=== PATIENT | female | born 1970 | race Caucasian/White ===

== ENCOUNTER 2017-11-13 20:12 | Inpatient (IN) | payer SELFPAY ==
[2017-11-13] MEDS ORDERED: HALDOL INJ ONE ×3 (20:23→20:49)
[2017-11-13] MEDS ORDERED: ACTIDOSE WITH SORBITOL NG ONE (20:30)
[2017-11-13] MEDS ORDERED: HALDOL INJ IM ONE ×2 (20:47→20:48)
--- NOTE | 2017-11-13 20:50 | DR.GENAD ---
HPI - Complaint/Symptoms Chief Complaint Doctors Comments: Patient was brought to the ED s/p being called by the spouse of patient when found patient in house unresponsive s/p just seeing her in her usual state of good health less than fifteen minutes later. Upon arrival to the ED she was combative, would not answer question. She eventualy came around, was combative, she was given Haldol 10mg IM. Patient was calm but was non cooperative as to what had hapened. Activated charcoal given and IVF started. patient became subdued and eventually began answering questions but she did not know any answers as to what had happened and/or why it had happened. PMH - PMH Past Medical History: Anxiety, GERD Past Surgical History: No - Family History Family Medical History: Diabetes Mellitus, [place], Hypertension - Social History Do you use any recreational Drugs:: No ROS - Review of Systems Eyes: No Symptoms Reported ENTM: No Symptoms Reported Respiratoy: No Symptoms Reported Cardiovascular: No Symptoms Reported Gastrointestinal/Abdominal: No Symptoms Reported Genitourinary: No Symptoms Reported Neurological: No Symptoms Reported Musculoskeletal: No Symptoms Reported Integumentary: No Symptoms Reported Hematologic/Lymphatic: No Symptoms Reported Endocrine: No Symptoms Reported Psychiatric: No Symptoms Reported All Other Systems: Reviewed and Negative PE - Vital Signs Vitals: Temperature 97.2 F Pulse Rate [Left Brachial] 93 Pulse Rate 98 Respiratory Rate 22 Blood Pressure [Right Arm] 115/62 Blood Pressure 130/94 O2 Sat by Pulse Oximetry 99 - General General Appearance: Alert, Obtunded - Head Head Exam: Normal Inspection, Atraumatic - Eyes Eye exam: Normal Appearance, PERRL, EOMI - ENT ENT Exam: Normal Exam External Ear Exam: Normal External Inspection TM/Canal Exam: Bilateral Normal Nose Exam: Normal Nose Exam Mouth Exam: Normal Inspection Throat Exam: Normal Inspection - Neck Neck Exam: Normal Inspection - Chest Chest Inspection: Normal Inspection - Respiratory Respiratory Exam: Normal Lung Sounds Bilat Respiratory Exam: Bilateral Clear to Auscultation - Cardiovascular Cardiovascular Exam: Regular Rate - Abdominal Exam Abdominal Exam: Normal Inspection, Normal Bowel Sounds Abdominal Tenderness: RUQ, RLQ, LUQ, LLQ - Extremities Extremities Exam: Normal Inspection - Back Back Exam: Normal Inspection, Full ROM - Neurologic Neurological Exam: Alert, Oriented X3, CN II-XII Intact - Psychiatric Psychiatric Exam: Normal Affect, Normal Mood - Skin Skin Exam: Warm, Dry, Intact Course - Treatment Treatment: Patient is responsive, states that she does not what happened, denies suicidal attempt. She reports that she is an insomniac stays up for three to four nights at a time. She uses xanax to sleep and takes up to 5mg at a time. She gets the medication from her physician or on the streets. She can not remember. She denies suicidal attempt. 0700-on non-rebreather, saturation 97 % IVF @100/hr. She was given two doses of flumazenil became more alert. brant contacted for psychological evaluation. Nicotine patch ordered. - Reevaluation 1st: Improved ROR - Labs Reviewed Laboratory Results Reviewed?: Yes (Drug screen, THC, Benzodiazepines) Result Diagrams: 11/14/17 00:04 11/14/17 00:04 Laboratory: 11/14/17 01:30 Sputum - Expectorated Sputum - Final WBC 13.8 X10^3/uL (3.6-10.0) H 11/14/17 00:04 RBC 4.07 X10^6/uL (3.5-5.4) 11/14/17 00:04 Hgb 12.5 g/dL (12.0-16.0) 11/14/17 00:04 Hct 36.8 % (36.0-47.0) 11/14/17 00:04 MCV 90.3 fL (80.0-100.0) 11/14/17 00:04 MCH 30.6 pg (27.0-34.0) 11/14/17 00:04 MCHC 33.9 g/dL (33.0-35.0) 11/14/17 00:04 RDW 13.7 % (11.6-16.5) 11/14/17 00:04 Plt Count 294 X10^3/uL (150.0-450.0) 11/14/17 00:04 MPV 7.3 fL (7.4-11.0) L 11/14/17 00:04 Neut % (Auto) 89.3 % (42.0-75.0) H 11/14/17 00:04 Lymph % (Auto) 4.5 % (21.0-51.0) L 11/14/17 00:04 [place] % (Auto) 6.0 % (0.0-13.0) 11/14/17 00:04 Eos % (Auto) 0.1 % (0.9-2.9) L 11/14/17 00:04 Baso % (Auto) 0.1 % (0.2-1.0) L 11/14/17 00:04 Neut # (Auto) 12.3 x10^3/uL (2.2-4.8) H 11/14/17 00:04 Lymph # (Auto) 0.6 X10^3/uL (1.3-2.9) L 11/14/17 00:04 [place] # (Auto) 0.8 x10^3/uL (0.3-0.8) 11/14/17 00:04 Eos # (Auto) 0.0 x10^3/uL (0.0-0.2) 11/14/17 00:04 Baso # (Auto) 0.0 X10^3/uL (0.0-0.1) 11/14/17 00:04 Absolute Nucleated RBC 0.0 /100WBC 11/14/17 00:04 Sample Site Right radial 11/14/17 06:15 ABG pH 7.400 (7.35-7.45) 11/14/17 06:15 ABG pCO2 54.0 mmHg (35.0-45.0) H* 11/14/17 06:15 ABG pO2 31.0 mmHg (80.0-100.0) L* 11/14/17 06:15 ABG HCO3 33.4 mmol/L (22-26) H* 11/14/17 06:15 ABG O2 Saturation 60.0 % (90-100) L* 11/14/17 06:15 ABG Base Excess 7.1 mmol/L (-2.0-2.0) H 11/14/17 06:15 Ulices Test Pos 11/14/17 06:15 A-a Gradient 51.0 mmHg 11/14/17 06:15 FiO2 21.000 11/14/17 06:15 Blood Gas Comments Bhavana padilla 11/14/17 06:15 Sodium 142 mmol/L (136-145) 11/14/17 00:04 Corrected Sodium TNP 11/14/17 00:04 Potassium 3.7 mmol/L (3.5-5.1) 11/14/17 00:04 Chloride 105 mmol/L (98-107) 11/14/17 00:04 Carbon Dioxide 32.1 mmol/L (21-32) H 11/14/17 00:04 BUN 11 mg/dL (7-18) 11/14/17 00:04 Creatinine 0.83 mg/dL (0.55-1.02) 11/14/17 00:04 Est GFR (MDRD) Af Amer > 60 (>60) 11/14/17 00:04 Est GFR (MDRD) Non-Af > 60 (>60) 11/14/17 00:04 Glucose 82 mg/dL (65-99) 11/14/17 00:04 Calcium 7.6 mg/dL (8.5-10.1) L 11/14/17 00:04 Specimen Type Clean catch urine 11/13/17 23:49 Urine Color Yellow (YELLOW) 11/13/17 23:49 Urine Appearance Hazy (CLEAR) 11/13/17 23:49 Urine pH 5.0 (5.0 - 8.0) 11/13/17 23:49 Ur Specific [place] 1.015 (1.000-1.030) 11/13/17 23:49 Urine Protein 2+ (NEGATIVE) 11/13/17 23:49 Urine Glucose (UA) 4+ (NEGATIVE) 11/13/17 23:49 Urine Ketones Negative (NEGATIVE) 11/13/17 23:49 Urine Occult Blood 3+ (NEGATIVE) 11/13/17 23:49 Urine Nitrite Negative (NEGATIVE) 11/13/17 23:49 Urine Bilirubin Negative (NEGATIVE) 11/13/17 23:49 Urine Urobilinogen Normal (NORMAL) 11/13/17 23:49 Ur Leukocyte Esterase Negative (NEGATIVE) 11/13/17 23:49 Urine RBC 0-2 /HPF (NONE SEEN) 11/13/17 23:49 Urine WBC 0-2 /HPF (NONE SEEN) 11/13/17 23:49 Ur Squamous Epith Cells Numerous /HPF (NEGATIVE) 11/13/17 23:49 Urine Bacteria Negative /HPF (NEGATIVE) 11/13/17 23:49 Ur Culture Indicated? No/not indicated 11/13/17 23:49 Urine Opiates Screen Negative (NEG=<300) 11/13/17 23:49 Urine Methadone Screen Negative (NEG=<300) 11/13/17 23:49 Ur Barbiturates Screen Negative (NEG=<200) 11/13/17 23:49 Ur Phencyclidine Scrn Negative (NEG=<25) 11/13/17 23:49 Ur Amphetamines Screen Negative (NEG=<1000) 11/13/17 23:49 U Benzodiazepines Scrn Positive (NEG=<200) A 11/13/17 23:49 Urine Cocaine Screen Negative (NEG=<300) 11/13/17 23:49 U Marijuana (THC) Screen Positive (NEG=<50) A 11/13/17 23:49 - XRAY XRAY Interpreted by: Radiologist (ETT: good placement, no acute cardiopulmonary disease, chest clear. ETT good positing) - Diagnosis Discharge Problem: benzodiazepine ingestion, Tetrahydrocannabinol (THC) use disorder, mild, abuse , Acute respiratory acidosis, Non-suicidal self harm Insomnia disorder Qualifiers: Insomnia type: unspecified Qualified Code(s): G47.00 - Insomnia, unspecified - Discharge Plan Condition: Stable - Follow ups/Referrals Follow ups/Referrals: NFD,None [Primary Care Provider] - 3 days - Instructions
[2017-11-13 20:56] LABS: ABG BASE EXCESS -0.2 mmol/L (-2.0-2.0); ABG HCO3 29.1 mmol/L (22-26)
--- NOTE | 2017-11-13 21:05 | RAD ---
HISTORY: NGT placement Study: KUB Comparison: None Findings: Evaluation of the abdomen demonstrates a nasogastric tube to be present, with the distal tip terminat ing within the left upper quadrant, likely within the stomach body. The bony structures are grossly intact. IMPRESSION: 1. ET tube in place as above Reported By:
[2017-11-14 00:19] LABS: BILIRUBIN,URINE NEGATIVE (NEGATIVE); BLOOD/HEMOGLOBIN,URINE 3+ (NEGATIVE); GLUCOSE, URINE 4+ (NEGATIVE); KETONES,URINE NEGATIVE (NEGATIVE); LEUKOCYTE ESTERASE ,URINE NEGATIVE (NEGATIVE); NITRITES,URINE NEGATIVE (NEGATIVE); PROTEIN,URINE 2+ (NEGATIVE); UROBILINOGEN,URINE NORMAL (NORMAL)
[2017-11-14 00:19] LABS: BASOPHILS % (AUTO) 0.1 % (0.2-1.0); EOSINOPHILS % (AUTO) 0.1 % (0.9-2.9); HEMATOCRIT 36.8 % (36.0-47.0); HEMOGLOBIN 12.5 g/dL (12.0-16.0); LYMPHOCYTES # (AUTO) 0.6 X10^3/uL (1.3-2.9); LYMPHOCYTES % (AUTO) 4.5 % (21.0-51.0); MEAN CORPUSCULAR HEMOGLOBIN 30.6 pg (27.0-34.0); MEAN CORPUSCULAR HGB CONC 33.9 g/dL (33.0-35.0); MEAN CORPUSCULAR VOLUME 90.3 fL (80.0-100.0); MEAN PLATELET VOLUME 7.3 fL (7.4-11.0); MONOCYTES # (AUTO) 0.8 x10^3/uL (0.3-0.8); NEUTROPHILS # (AUTO) 12.3 x10^3/uL (2.2-4.8); NEUTROPHILS % (AUTO) 89.3 % (42.0-75.0); PLATELET COUNT 294 X10^3/uL (150.0-450.0); RED BLOOD COUNT 4.07 X10^6/uL (3.5-5.4); RED CELL DISTRIBUTION WIDTH 13.7 % (11.6-16.5); WHITE BLOOD COUNT 13.8 X10^3/uL (3.6-10.0)
[2017-11-14 00:21] LABS: BLOOD UREA NITROGEN 11 mg/dL (7-18); CALCIUM 7.6 mg/dL (8.5-10.1); CARBON DIOXIDE 32.1 mmol/L (21-32); CHLORIDE 105 mmol/L (98-107); CREATININE 0.83 mg/dL (0.55-1.02); SODIUM 142 mmol/L (136-145); eGFR BLACK RACES > 60 (>60); eGFR NON BLACK RACES > 60 (>60)
[2017-11-14 00:34] LABS: APPEARANCE,URINE HAZY (CLEAR); BACTERIA,URINE NEGATIVE /HPF (NEGATIVE); COLOR,URINE YELLOW (YELLOW); RBC,URINE 0-2 /HPF (NONE SEEN); SQUAMOUS EPITHELIAL CELL,UR NUMEROUS /HPF (NEGATIVE)
[2017-11-14] MEDS ORDERED: DUONEB 0.5 MG/3 MG NEB ONE ×2 (01:12→09:59)
[2017-11-14] MEDS ORDERED: DECADRON JET NEB (RESP USE) NEB ONE (01:12)
--- NOTE | 2017-11-14 01:33 | RAD ---
AP chest. Indication: Wheezing, overdose Comparison: 07/05/2015 Findings: Lungs are clear. Heart size is normal. No pleural effusion or pneumothorax. No acute osseou s abnormality. Impression: No acute cardiopulmonary abnormality or change from prior examination. Reported By:
[2017-11-14] MEDS ORDERED: ROMAZICON INJ 0.5 MG IVP ONE (01:45)
[2017-11-14 05:43] LABS: ABG BASE EXCESS 7.9 mmol/L (-2.0-2.0)
[2017-11-14 05:45] LABS: ABG HCO3 34.9 mmol/L (22-26)
[2017-11-14 06:25] LABS: ABG BASE EXCESS 7.1 mmol/L (-2.0-2.0)
[2017-11-14 06:27] LABS: ABG ALLEN TEST POS; ABG HCO3 33.4 mmol/L (22-26)
[2017-11-14] MEDS ORDERED: NS 1000 ML 1,000 ML ONE (06:34)
[2017-11-14] MEDS ORDERED: ROMAZICON INJ 0.5 MG ONE (06:34)
[2017-11-14] MEDS ORDERED: SOLU-Medrol 125 MG VIAL ONE (06:55)
[2017-11-14] MEDS: SOLU-Medrol 125 MG VIAL IVP ONE ×2 (07:00→20:12)
[2017-11-14] MEDS: NICOTINE PATCH TD SCH ×2 (08:59)
[2017-11-14 09:38] LABS: ABG BASE EXCESS 7.1 mmol/L (-2.0-2.0)
[2017-11-14 09:39] LABS: ABG HCO3 34.1 mmol/L (22-26)
[2017-11-14 09:40] LABS: ABG ALLEN TEST POS
[2017-11-14 10:10] LABS: SALICYLATE < 2.8 mg/dL (2.8-20)
[2017-11-14 11:29] VITALS: BMI 31.1
[2017-11-14] MEDS: NS 1000 ML 1,000 ML IV SCH ×2 (11:29→17:23)
[2017-11-14] MEDS: DUONEB 0.5 MG/3 MG NEB SCH ×4 (13:11→20:42)
[2017-11-14] MEDS: SOLU-Medrol 40 MG VIAL IVP SCH ×2 (13:19→20:59)
[2017-11-14] MEDS: LASIX PO SCH (21:00)
[2017-11-14] MEDS ORDERED: ZANTAC PO SCH (21:00)
[2017-11-14] MEDS ORDERED: K-RIDER 10 MEQ/NS 100 ML 10 MEQ/100 ML BAG IV PRN (22:21)
[2017-11-14] MEDS ORDERED: POTASSIUM CHL 40 MEQ/NS 0.45% 500 ML IV PRN (22:21)
[2017-11-14] MEDS ORDERED: POTASSIUM CHL 60 MEQ/NS 0.45% 500 ML IV PRN (22:21)
[2017-11-14] MEDS ORDERED: POTASSIUM CHLORIDE LIQ 20 MEQ UDC PO PRN (22:21)
[2017-11-14] MEDS: K-LYTE EFFERVESCENT PO PRN (23:01)
[2017-11-14] MEDS: MAGNESIUM SULFATE 1 GM/100 mL PREMIX 1 GM/100 ML BAG IV PRN (23:01)
[2017-11-15] MEDS: MAGNESIUM SULFATE 1 GM/100 mL PREMIX 1 GM/100 ML BAG IV PRN ×3 (00:22→02:17)
[2017-11-15] MEDS: DUONEB 0.5 MG/3 MG NEB SCH ×4 (01:11→13:45)
[2017-11-15] MEDS: NS 1000 ML 1,000 ML IV SCH ×3 (01:14→13:03)
[2017-11-15] MEDS: SOLU-Medrol 40 MG VIAL IVP SCH ×2 (05:22→13:03)
[2017-11-15 06:41] LABS: ALANINE AMINOTRANSFERASE 45 Units/L (12-78); ALBUMIN 2.5 g/dL (3.4-5.0); ALKALINE PHOSPHATASE 72 Units/L (46-116); ASPARTATE AMINO TRANSFERASE 31 Units/L (15-37); BLOOD UREA NITROGEN 7 mg/dL (7-18); CALCIUM 7.6 mg/dL (8.5-10.1); CARBON DIOXIDE 28.2 mmol/L (21-32); CHLORIDE 106 mmol/L (98-107); COR CA(FOR HYPOALB) 8.8 mg/dL (8.5-10.1); COR NA(FOR HYPERGLY) 143 mmol/L (136-145); CREATININE 0.63 mg/dL (0.55-1.02); MAGNESIUM 2.5 mg/dL (1.7-2.9); SODIUM 141 mmol/L (136-145); TOTAL PROTEIN 6.2 g/dL (6.4-8.2); eGFR BLACK RACES > 60 (>60); eGFR NON BLACK RACES > 60 (>60)
[2017-11-15 06:53] LABS: BASOPHILS % (AUTO) 0.2 % (0.2-1.0); HEMOGLOBIN 11.2 g/dL (12.0-16.0); LYMPHOCYTES # (AUTO) 0.6 X10^3/uL (1.3-2.9); LYMPHOCYTES % (AUTO) 3.1 % (21.0-51.0); MEAN CORPUSCULAR HEMOGLOBIN 30.5 pg (27.0-34.0); MEAN CORPUSCULAR HGB CONC 33.9 g/dL (33.0-35.0); MEAN CORPUSCULAR VOLUME 89.8 fL (80.0-100.0); MEAN PLATELET VOLUME 8.3 fL (7.4-11.0); MONOCYTES % (AUTO) 4.9 % (0.0-13.0); NEUTROPHILS % (AUTO) 91.8 % (42.0-75.0); PLATELET COUNT 233 X10^3/uL (150.0-450.0); RED BLOOD COUNT 3.67 X10^6/uL (3.5-5.4); RED CELL DISTRIBUTION WIDTH 13.7 % (11.6-16.5); WHITE BLOOD COUNT 20.7 X10^3/uL (3.6-10.0)
[2017-11-15 07:24] LABS: BAND NEUTROPHILS % 7 % (0-10); PLATELET MORPHOLOGY COMMENT NORMAL (NORMAL)
[2017-11-15] MEDS: LASIX PO SCH (08:28)
[2017-11-15] MEDS: NICOTINE PATCH TD SCH (08:31)
[2017-11-15] MEDS: K-LYTE EFFERVESCENT PO PRN (09:06)
[2017-11-15 09:53] LABS: ABG BASE EXCESS 5.1 mmol/L (-2.0-2.0); ABG HCO3 30.5 mmol/L (22-26)
--- NOTE | 2017-11-15 10:48 | RAD ---
HISTORY: Shortness of breath Study: Single view chest Comparison: 11/14/2017 Findings: Single upright portable view is submitted, limited by patient rotation and underpenetration. No infil trate, effusion or pneumothorax identified. The cardiac and mediastinal contours are within normal li mits. The soft tissues are unremarkable. IMPRESSION: 1. No acute cardiopulmonary abnormality. Reported By:
[2017-11-15 15:02] VITALS: BP 130/60
--- NOTE | 2017-11-17 09:21 | DR.CARTERS ---
Short Stay Summary - Short Stay Summary for: Short Stay Summary for Date of:: 11/15/17 - Admission Date Date of Admission: 11/14/17 - Discharge Date Discharge Date: 11/15/17 - Admission Diagnoses (1) Overdose of benzodiazepine Status: Acute (2) Hypoxia Status: Acute (3) Aspiration pneumonia Status: Acute - Hospital Course Hospital Course: is a 47 year old white female who presented to the emergency room via EMS on 11/13/17 unresponsive. Patients spouse called EMS after finding patient unresponsive when she was just in her usual state of good health less than fifteen minutes earler. On arrival to the hospital, patient was combative and would not answer questions. She was given Haldol 10mg IM x 1 dose. Patient was eventually calm and reported that she did not know what happened or why she was at the hospital. EMS reported that on arrival, her oxygen saturations were in the 70s. EMS attempted intubation without success and placed patient on non- rebreather with increase in saturation noted. EMS started an IV to right EJ and administered Narcan 0.4mg x2 in route. Patient given Romazicon and Activated charcoal in the ER. Patient became more alert and reports she took five 1mg Xanax at one time prior to becoming unresponsive. Patient denies suicide attempt and states she has insomnia and was just trying to sleep. Poison control was contacted and suggested patient be monitored for at least 24 hours. On arrival, vitals were 97.2, 113, 34, 97% Non-rebreather, 130/94. Labs were obtained. Abnormal Labs: WBC 13.8, MPV 7.3, Carbon Dioxide 32.1, Calcium 7.6, Magnesium 1.4, Salicylates <2.8, Acetominophen 0.0. Urinalysis: (11/13/17) Hazy, Protein 2+, Glucose 4+, Occult Blood 3+, RBC 0-2, WBC 0-2. Toxicology: Benzodiazepines Positive, THC Positive. Sputum Culture Pending; Sputum Gram Stain Gram Neg Cocci Few, Gram Pos Cocci Many, Gram Neg Rods Few, WBC Many. Chest X-Ray: No acute cardiopulmonary abnormality or change from prior examination. EKG: Sinus Rhythm. Rate=84. Multiple ABGs obtained in the emergency room revealed patient to be in respiratory acidosis. Patient monitored in the emergency room for about 14 hours and continued with decreased oxygen saturation and was admitted to the hospital for further evaluation and treatment. On the morning following admission, patient is alert and oriented, lying in bed on morning rounds. She reports a non-productive cough, otherwise, reports feeling well. On examination, she is noted with diminished lung sounds throughout. Her vitals this morning are 98.5-85-16-96%-111/54. Labs were obtained. Abnormal lab values include the following: WBC increased from 13.8 to 20.7, HGB 11.2, HCT 33.0, GLUCOSE 163, CALCIUM 7.6, TOTAL PROTEIN 6.2, ALBUMIN 2.5. AN ABG WAS OBTAINED AND REVEALED PH 7.420, PC02 47, P02 70, HC03 30.5, BASE EXCESS 5.1, O2 SATURATION 94.0. Sputum cultures are pending. A chest xray was obtained and revealed no acute cardiopulmonary abnormality. We planned for discharge. Instructions for medications and follow up were given to patient. She verbalized understanding of all orders. Patient discharged to home in stable condition with prescriptions for augmentin 875-125 1 tablet po q12h x 10 days, duoneb treatments tid x 10 days then prn, and a Medrol dosepack. She is instructed to follow up in the office on 11/22/17. - Discharge Medications Discharge Medications: Furosemide 40 mg PO DAILY 11/14/17 [History] Ranitidine HCl [ZANTAC TAB 150 MG *] 300 mg PO HS 11/14/17 [History] Amoxicillin/Potassium Clav [Augmentin 875-125 Tablet] 1 tab PO Q12H #20 tab [Rx] Ipratropium/Albuterol Nebule [DUONEB 0.5 MG/3 MG NEBULE *] 1 ea NEB TID #50 each 11/15/17 [Rx] Methylprednisolone Dosepak 4Mg [MEDROL DOSEPAK (4 mg tab x 21)] 1 sylvie PO ONCE # 1 sylvie 11/15/17 [Rx] - Discharge Plan Disposition: 01 HOME, SELF-CARE Condition: Stable Prescriptions: Amoxicillin/Potassium Clav [Augmentin 875-125 Tablet] 1 tab PO Q12H #20 tab Ipratropium/Albuterol Nebule [DUONEB 0.5 MG/3 MG NEBULE *] 1 ea NEB TID #50 each Methylprednisolone Dosepak 4Mg [MEDROL DOSEPAK (4 mg tab x 21)] 1 sylvie PO ONCE # 1 sylvie - Follow up/Referrals Follow up/Referrals: Mary Nuñez [Nurse Practitioner] - 11/22/17 10:00 am - Instructions Instructions: Benzodiazepine Overdose, Steps to Quit Smoking, [id number], Arterial Blood Gases Testing, Cannabis Use Disorder, How to Use a Nebulizer, Adult, Chronic Obstructive Pulmonary Disease, [id number], Steps to Quit Smoking Additional Instructions: diet as tolerated. activity as tolerated. Forms: Patient Portal
== END 2017-11-15 15:37 | disposition home or self-care (01) | DRG 917 ==
LOC: ER 20:21 → ICU 11-14 10:31
PROVIDERS: ADMIT Internal Medicine; ATTEND Internal Medicine
PROC: 0D9670Z Drainage of Stomach with Drainage Device, Via Natural or Artificial Opening (ICD-10-PCS; principal; 2017-11-13)
DX: T42.4X1A Poisoning by benzodiazepines, accidental (unintentional), initial encounter (principal); J69.0 Pneumonitis due to inhalation of food and vomit; E87.2 Acidosis; R41.82 Altered mental status, unspecified; R09.02 Hypoxemia; G47.00 Insomnia, unspecified; K21.9 Gastro-esophageal reflux disease without esophagitis; F41.8 Other specified anxiety disorders; F12.90 Cannabis use, unspecified, uncomplicated
CPT/HCPCS: 36415; 36600; 43753; 71045; 74018; 80048; 80053; 80307; 81001; 82803; 83735; 85025; 87070; 87077; 87186; 87205; 93005; 94640; 96365; 96367; 96372; 96374; 96375; 99283; 99284; A4222; G0434; G6038; G6039; J1630; J2920; J2930; J3490; J7620

== ENCOUNTER 2018-04-06 20:36 | Inpatient (IN) ==
[2018-04-06 21:09] LABS: ABG ALLEN TEST POS; ABG BASE EXCESS -0.8 mmol/L (-2.0-2.0); ABG HCO3 24.9 mmol/L (22-26); FRACTIONATED INSPIRED OXYGEN 100
[2018-04-06 21:19] LABS: BILIRUBIN,URINE NEGATIVE (NEGATIVE); BLOOD/HEMOGLOBIN,URINE 3+ (NEGATIVE); GLUCOSE, URINE 4+ (NEGATIVE); KETONES,URINE NEGATIVE (NEGATIVE); LEUKOCYTE ESTERASE ,URINE NEGATIVE (NEGATIVE); NITRITES,URINE NEGATIVE (NEGATIVE); PH,URINE 6.5 (5.0 - 8.0); PROTEIN,URINE 3+ (NEGATIVE); UROBILINOGEN,URINE NORMAL (NORMAL)
[2018-04-06 21:23] LABS: APPEARANCE,URINE SLIGHTLY HAZY (CLEAR); COLOR,URINE YELLOW (YELLOW)
--- NOTE | 2018-04-06 21:25 | DR.GENAD ---
HPI - Complaint/Symptoms Chief Complaint Doctors Comments: Patient was found unresponsive by her as related by EMS. EMS state the patient with shadow breathing and they intubated her and gave her narcan x2. EMS states that her thought she took overdose of his pain medicines. EMS states she had agonal breathing and she was cyanotic and they intubated her. Patient state she is not allergic to anything. Nurse suctioned one 75ug fentanyl patch out her mouth after she had episode of vomiting. Patient states she chewed three fentanyl patchers today. She denies tobacco or alcohol usage. Patient states she was not trying to hurt herself when she chewed the fentanyl patch. - Nurses notes reviewed Nurses Notes Review: Yes - Source History Provided: Patient, EMS - Mode of Arrival Mode of Arrival: EMS - Timing Came on: At Night - Duration Duration: Constant Duration: Hours - Location Location: patient with agonal respiration; non responsive initially - Severity Severity: Severe - Modifying Factors Worsens:: nothing Improves:: narcan PMH - PMH Past Medical History: Anxiety, GERD Past Surgical History: No - Family History Family Medical History: Diabetes Mellitus, Cancer, [place] - Social History Do you use any recreational Drugs:: No ROS - Review of Systems Constitutional: No Symptoms Reported Eyes: No Symptoms Reported ENTM: No Symptoms Reported Respiratoy: No Symptoms Reported Cardiovascular: No Symptoms Reported Gastrointestinal/Abdominal: No Symptoms Reported, Nausea, Vomiting Genitourinary: No Symptoms Reported Neurological: No Symptoms Reported Musculoskeletal: No Symptoms Reported Integumentary: No Symptoms Reported, Change in Color Hematologic/Lymphatic: No Symptoms Reported Endocrine: No Symptoms Reported Psychiatric: No Symptoms Reported PE - General Limitations: No Limitations General Appearance: Alert, In Distress (severe) - Head Head Exam: Normal Inspection, Atraumatic, Normocephalic - Eyes Eye exam: Normal Appearance, PERRL, EOMI. negative: Scleral Icterus, Conjunctival Injection, Nystagmus, Miosis, Mydrasis, Periorbital Swelling, Periorbital Tenderness, Other - ENT ENT Exam: Normal Exam, Normal Oropharynx, Normal External Ear Exam, Mucous Membranes Moist, TM's Normal Bilaterally External Ear Exam: Normal External Inspection TM/Canal Exam: Bilateral Normal Nose Exam: Normal Nose Exam (brownish vomitus in nasal passage) Mouth Exam: Normal Inspection (ET tube in place) Throat Exam: Normal Inspection - Neck Neck Exam: Normal Inspection, Full ROM, Trachea Midline - Chest Chest Inspection: Normal Inspection, Symmetric Chest Wall Rise (ventillator) - Respiratory Respiratory Exam: Normal Lung Sounds Bilat Respiratory Exam: Bilateral Clear to Auscultation - Cardiovascular Cardiovascular Exam: Regular Rate, Normal Rhythm, Normal Heart Sounds - Abdominal Exam Abdominal Exam: Normal Inspection, Normal Bowel Sounds Abdominal Tenderness: negative: RUQ, RLQ, LUQ, LLQ, Epigastrium, Suprapubic, Diffuse, Mild, Moderate, Severe, Other - Extremities Extremities Exam: Normal Inspection, Full ROM, Normal Capillary Refill. negative: Tenderness, Edema, Joint Swelling, Calf Tenderness, Other - Back Back Exam: Normal Inspection, Full ROM - Neurologic Neurological Exam: Alert, Oriented X3, CN II-XII Intact, Reflexes Normal. negative: Normal Gait (gait not tested) - Psychiatric Psychiatric Exam: Normal Affect, Normal Mood - Skin Skin Exam: Warm, Dry, Intact, Normal Color - Vital Signs Vitals: Temperature 98.7 F Pulse Rate [Brachial] 105 Respiratory Rate 22 Blood Pressure [Left Arm] 125/83 Blood Pressure [Right Arm] 132/87 Blood Pressure 130/60 O2 Sat by Pulse Oximetry 98 Course - Reevaluation 1st: Improved - Consultation Called: 22:37 Call Returned: 22:37 (Dr. Rowland to admit) ROR - Labs Reviewed Laboratory Results Reviewed?: Yes (All labs and x-ray results reviewed and discussed with patient) Result Diagrams: 04/06/18 21:00 04/06/18 21:00 - XRAY XRAY Interpreted by: Radiologist (CXR: Support device; lungs are clear. No acute cardiopulmonary disease.) - Labs Reviewed Laboratory: WBC 7.6 X10^3/uL (3.6-10.0) 04/06/18 21:00 RBC 4.18 X10^6/uL (3.5-5.4) 04/06/18 21:00 Hgb 12.9 g/dL (12.0-16.0) 04/06/18 21:00 Hct 38.5 % (36.0-47.0) 04/06/18 21:00 MCV 92.2 fL (80.0-100.0) 04/06/18 21:00 MCH 31.0 pg (27.0-34.0) 04/06/18 21:00 MCHC 33.6 g/dL (33.0-35.0) 04/06/18 21:00 RDW 13.7 % (11.6-16.5) 04/06/18 21:00 Plt Count 324 X10^3/uL (150.0-450.0) 04/06/18 21:00 MPV 7.9 fL (7.4-11.0) 04/06/18 21:00 Neut % (Auto) 56.3 % (42.0-75.0) 04/06/18 21:00 Lymph % (Auto) 37.9 % (21.0-51.0) 04/06/18 21:00 [place] % (Auto) 2.8 % (0.0-13.0) 04/06/18 21:00 Eos % (Auto) 2.2 % (0.9-2.9) 04/06/18 21:00 Baso % (Auto) 0.8 % (0.2-1.0) 04/06/18 21:00 Neut # (Auto) 4.3 x10^3/uL (2.2-4.8) 04/06/18 21:00 Lymph # (Auto) 2.9 X10^3/uL (1.3-2.9) 04/06/18 21:00 [place] # (Auto) 0.2 x10^3/uL (0.3-0.8) L 04/06/18 21:00 Eos # (Auto) 0.2 x10^3/uL (0.0-0.2) 04/06/18 21:00 Baso # (Auto) 0.1 X10^3/uL (0.0-0.1) 04/06/18 21:00 Absolute Nucleated RBC 0.0 /100WBC 04/06/18 21:00 INR Target Range - 04/06/18 21:00 INR 0.93 (0.8-1.3) 04/06/18 21:00 APTT 25.5 SECONDS (22.9-36.5) 04/06/18 21:00 PTT Comment - 04/06/18 21:00 D-Dimer 848 ng/mL (0-400) H* 04/06/18 21:00 Sample Site Right radial 04/06/18 21:01 ABG pH 7.360 (7.35-7.45) 04/06/18 21:01 ABG pCO2 44.0 mmHg (35.0-45.0) 04/06/18 21:01 ABG pO2 347.0 mmHg (80.0-100.0) H 04/06/18 21:01 ABG HCO3 24.9 mmol/L (22-26) 04/06/18 21:01 ABG O2 Saturation 100.0 % (90-100) 04/06/18 21:01 ABG Base Excess -0.8 mmol/L (-2.0-2.0) 04/06/18 21:01 Ulices Test Pos 04/06/18 21:01 A-a Gradient 311.0 mmHg 04/06/18 21:01 FiO2 100 04/06/18 21:01 Blood Gas Comments Bhavana well jts 04/06/18 21:01 Sodium 136 mmol/L (136-145) 04/06/18 21:00 Corrected Sodium 142 mmol/L (136-145) 04/06/18 21:00 Potassium 3.7 mmol/L (3.5-5.1) 04/06/18 21:00 Chloride 97 mmol/L (98-107) L 04/06/18 21:00 Carbon Dioxide 24.2 mmol/L (21-32) 04/06/18 21:00 BUN 11 mg/dL (7-18) 04/06/18 21:00 Creatinine 1.48 mg/dL (0.55-1.02) H 04/06/18 21:00 Est GFR (MDRD) Af Amer 49 (>60) L 04/06/18 21:00 Est GFR (MDRD) Non-Af 40 (>60) L 04/06/18 21:00 Glucose 334 mg/dL (65-99) H 04/06/18 21:00 Calcium 8.3 mg/dL (8.5-10.1) L 04/06/18 21:00 Corrected Calcium TNP 04/06/18 21:00 Magnesium 1.9 mg/dL (1.7-2.9) 04/06/18 21:00 Total Bilirubin 0.20 mg/dL (0.2-1.0) 04/06/18 21:00 AST 38 Units/L (15-37) H 04/06/18 21:00 ALT 35 Units/L (12-78) 04/06/18 21:00 Alkaline Phosphatase 74 Units/L (46-116) 04/06/18 21:00 Creatine Kinase 132 Units/L (26-192) 04/06/18 21:00 CK-MB (CK-2) 3.4 ng/mL (0-4.0) 04/06/18 21:00 CK/CKMB % Calc 2.6 % (<4) 04/06/18 21:00 Troponin I 0.33 ng/mL (0-1.5) 04/06/18 21:00 Total Protein 7.3 g/dL (6.4-8.2) 04/06/18 21:00 Albumin 3.4 g/dL (3.4-5.0) 04/06/18 21:00 Globulin 3.9 g/dL (2.5-4.5) 04/06/18 21:00 Albumin/Globulin Ratio 0.9 Ratio (1.1-2.1) L 04/06/18 21:00 Specimen Type Catherized urine 04/06/18 21:07 Urine Color Yellow (YELLOW) 04/06/18 21: Urine Appearance Slightly hazy (CLEAR) 04/06/18 21:07 Urine pH 6.5 (5.0 - 8.0) 04/06/18 21:07 Ur Specific [place] 1.010 (1.000-1.030) 04/06/18 21:07 Urine Protein 3+ (NEGATIVE) 04/06/18 21: Urine Glucose (UA) 4+ (NEGATIVE) 04/06/18 21: Urine Ketones Negative (NEGATIVE) 04/06/18 21: Urine Occult Blood 3+ (NEGATIVE) 04/06/18 21: Urine Nitrite Negative (NEGATIVE) 04/06/18 21: Urine Bilirubin Negative (NEGATIVE) 04/06/18 21: Urine Urobilinogen Normal (NORMAL) 04/06/18 21: Ur Leukocyte Esterase Negative (NEGATIVE) 04/06/18 21: Urine RBC 20-30 /HPF (NONE SEEN) 04/06/18 21:07 Urine WBC 0-2 /HPF (NONE SEEN) 04/06/18 21: Ur Squamous Epith Cells Many /HPF (NEGATIVE) 04/06/18 21:07 Amorphous Sediment Trace /HPF (NEGATIVE) 04/06/18 21:07 Urine Bacteria Trace /HPF (NEGATIVE) 04/06/18 21:07 Urine Mucus Few /HPF (NEGATIVE) 04/06/18 21:07 Ur Culture Indicated? No/not indicated 04/06/18 21:07 Salicylates 2.8 mg/dL (2.8-20) 04/06/18 21:00 Urine Opiates Screen Negative (NEG=<300) 04/06/18 21:07 Urine Methadone Screen Negative (NEG=<300) 04/06/18 21:07 Ur Barbiturates Screen Negative (NEG=<200) 04/06/18 21:07 Ur Phencyclidine Scrn Negative (NEG=<25) 04/06/18 21:07 Ur Amphetamines Screen Negative (NEG=<1000) 04/06/18 21:07 U Benzodiazepines Scrn Positive (NEG=<200) A 04/06/18 21:07 Urine Cocaine Screen Negative (NEG=<300) 04/06/18 21:07 U Marijuana (THC) Screen Negative (NEG=<50) 04/06/18 21:07 Ethyl Alcohol mg/dL < 3 mg/dL (0-19.9) 04/06/18 21:00 - Diagnosis Discharge Problem: Hyperglycemia, Chronic kidney disease (CKD) Respiratory failure Qualifiers: Chronicity: acute Respiratory failure complication: unspecified whether with hypoxia or hypercapnia Qualified Code(s): J96.00 - Acute respiratory failure, unspecified whether with hypoxia or hypercapnia Drug overdose Qualifiers: Encounter type: initial encounter Injury intent: accidental or unintentional Qualified Code(s): T50.901A - Poisoning by unspecified drugs, medicaments and biological substances, accidental (unintentional), initial encounter Vomiting Qualifiers: Vomiting type: unspecified Fentanyl poisoning Qualifiers: Encounter type: initial encounter Injury intent: accidental or unintentional Qualified Code(s): T40.4X1A - Poisoning by other synthetic narcotics, accidental (unintentional), initial encounter - Discharge Plan Disposition: ADMITTED INPATIENT Condition: Stable - Follow ups/Referrals Follow ups/Referrals: NFD,None [Primary Care Provider] - 3 days - Instructions Additional Notes - Additional Notes Additional Notes: 7825 Patient given trail on room air without change in respirtion, pulse or blood pressure greater than 10 minutes with no change in oxygen saturation. Patient extubated without difficulty. Presently on 2 liters with O2 96 %.
[2018-04-06 21:28] LABS: AMORPHOUS SEDIMENT,UR TRACE /HPF (NEGATIVE); BACTERIA,URINE TRACE /HPF (NEGATIVE); RBC,URINE 20-30 /HPF (NONE SEEN); SQUAMOUS EPITHELIAL CELL,UR MANY /HPF (NEGATIVE)
[2018-04-06 21:29] LABS: MUCUS,URINE FEW /HPF (NEGATIVE)
[2018-04-06] MEDS ORDERED: ROCEPHIN VIAL 1 GRAM IVP ONE (21:30)
[2018-04-06 21:34] LABS: BASOPHILS # (AUTO) 0.1 X10^3/uL (0.0-0.1); BASOPHILS % (AUTO) 0.8 % (0.2-1.0); EOSINOPHILS # (AUTO) 0.2 x10^3/uL (0.0-0.2); EOSINOPHILS % (AUTO) 2.2 % (0.9-2.9); HEMATOCRIT 38.5 % (36.0-47.0); HEMOGLOBIN 12.9 g/dL (12.0-16.0); LYMPHOCYTES # (AUTO) 2.9 X10^3/uL (1.3-2.9); LYMPHOCYTES % (AUTO) 37.9 % (21.0-51.0); MEAN CORPUSCULAR HGB CONC 33.6 g/dL (33.0-35.0); MEAN CORPUSCULAR VOLUME 92.2 fL (80.0-100.0); MEAN PLATELET VOLUME 7.9 fL (7.4-11.0); MONOCYTES # (AUTO) 0.2 x10^3/uL (0.3-0.8); MONOCYTES % (AUTO) 2.8 % (0.0-13.0); NEUTROPHILS # (AUTO) 4.3 x10^3/uL (2.2-4.8); NEUTROPHILS % (AUTO) 56.3 % (42.0-75.0); PLATELET COUNT 324 X10^3/uL (150.0-450.0); RED BLOOD COUNT 4.18 X10^6/uL (3.5-5.4); RED CELL DISTRIBUTION WIDTH 13.7 % (11.6-16.5); WHITE BLOOD COUNT 7.6 X10^3/uL (3.6-10.0)
[2018-04-06 21:38] LABS: SALICYLATE 2.8 mg/dL (2.8-20)
--- NOTE | 2018-04-06 21:47 | RAD ---
HISTORY: 47-year-old female for verification of endotracheal tube. Status post overdose. Study: Frontal view of the chest. Comparison: Chest radiograph 11/15/2017 Findings: Endotracheal tube overlies the thoracic trachea projecting 1.5 cm above the level the kelly. Conside r retraction 2.5 cm. Enteric tube courses to the left upper quadrant overlying the region of the stom ach with distal tip not visualized. The trachea is midline. The cardiac silhouette is stably enlarged. The lungs are clear without foca l consolidation, effusion or pneumothorax. Soft tissues are unremarkable. Osseous structures are unr emarkable. IMPRESSION: 1. Support devices as above, consider retraction of endotracheal tube 2.5 cm. 2. No acute cardiopulmonary disease. Reported By:
[2018-04-06 21:49] LABS: BLOOD UREA NITROGEN 11 mg/dL (7-18); CALCIUM 8.3 mg/dL (8.5-10.1); CARBON DIOXIDE 24.2 mmol/L (21-32); CHLORIDE 97 mmol/L (98-107); COR NA(FOR HYPERGLY) 142 mmol/L (136-145); CREATININE 1.48 mg/dL (0.55-1.02); SODIUM 136 mmol/L (136-145); TROPONIN I 0.33 ng/mL (0-1.5); eGFR NON BLACK RACES 40 (>60)
[2018-04-06 21:53] LABS: ALANINE AMINOTRANSFERASE 35 Units/L (12-78); ALBUMIN 3.4 g/dL (3.4-5.0); ALKALINE PHOSPHATASE 74 Units/L (46-116); ASPARTATE AMINO TRANSFERASE 38 Units/L (15-37); CKMB % 2.6 % (<4); CREATINE KINASE 132 Units/L (26-192); CREATINE KINASE MB 3.4 ng/mL (0-4.0); MAGNESIUM 1.9 mg/dL (1.7-2.9); TOTAL PROTEIN 7.3 g/dL (6.4-8.2)
[2018-04-06] MEDS ORDERED: ROCEPHIN VIAL 1 GRAM ONE (21:54)
[2018-04-06] MEDS ORDERED: NS 100 ML IV + SPIKE MINIBAG* 100 ML IV ONE (21:55)
[2018-04-06 21:57] VITALS: BMI 27.4
[2018-04-06] MEDS ORDERED: NS 1000 ML 1,000 ML IV SCH ×2 (22:00→23:00)
[2018-04-06 22:02] LABS: BLOOD ALCOHOL < 3 mg/dL (0-19.9)
[2018-04-06] MEDS ORDERED: NS 1000 ML 1,000 ML IV ONE (22:11)
[2018-04-06] MEDS ORDERED: HumuLIN R SC PRN (22:45)
[2018-04-06] MEDS ORDERED: LOVENOX INJ 80 MG SYR SC ONE (22:51)
[2018-04-06] MEDS ORDERED: PROTONIX INJ 40 MG VIAL IVP SCH (23:00)
[2018-04-06] MEDS ORDERED: NARCAN INJ IVP ONE (23:27)
--- NOTE | 2018-04-07 06:15 | RAD ---
Examination: Portable AP chest History: Respiratory failure Comparison 04/06/2018 Findings: Heart size unchanged. Lungs clear except for suspect mild right upper lobe linear atelectas is. No evidence for pulmonary edema, pleural fluid or pneumothorax. Endotracheal tube has been remove d. NG tube remains in previous position. Impression: Interval extubation. Suspect minimal right upper lobe atelectasis. Reported By:
[2018-04-07 08:10] LABS: BASOPHILS # (AUTO) 0.1 X10^3/uL (0.0-0.1); BASOPHILS % (AUTO) 0.7 % (0.2-1.0); EOSINOPHILS % (AUTO) 0.2 % (0.9-2.9); HEMATOCRIT 36.7 % (36.0-47.0); HEMOGLOBIN 12.3 g/dL (12.0-16.0); LYMPHOCYTES # (AUTO) 2.3 X10^3/uL (1.3-2.9); LYMPHOCYTES % (AUTO) 16.9 % (21.0-51.0); MEAN CORPUSCULAR HEMOGLOBIN 30.5 pg (27.0-34.0); MEAN CORPUSCULAR HGB CONC 33.5 g/dL (33.0-35.0); MEAN PLATELET VOLUME 7.7 fL (7.4-11.0); MONOCYTES # (AUTO) 0.9 x10^3/uL (0.3-0.8); MONOCYTES % (AUTO) 6.8 % (0.0-13.0); NEUTROPHILS # (AUTO) 10.4 x10^3/uL (2.2-4.8); NEUTROPHILS % (AUTO) 75.4 % (42.0-75.0); PLATELET COUNT 308 X10^3/uL (150.0-450.0); RED BLOOD COUNT 4.03 X10^6/uL (3.5-5.4); RED CELL DISTRIBUTION WIDTH 13.5 % (11.6-16.5); WHITE BLOOD COUNT 13.8 X10^3/uL (3.6-10.0)
[2018-04-07 08:23] LABS: ALANINE AMINOTRANSFERASE 37 Units/L (12-78); ALKALINE PHOSPHATASE 66 Units/L (46-116); ASPARTATE AMINO TRANSFERASE 36 Units/L (15-37); BLOOD UREA NITROGEN 10 mg/dL (7-18); CALCIUM 7.9 mg/dL (8.5-10.1); CARBON DIOXIDE 35.4 mmol/L (21-32); CHLORIDE 104 mmol/L (98-107); COR CA(FOR HYPOALB) 8.7 mg/dL (8.5-10.1); CREATININE 0.82 mg/dL (0.55-1.02); SODIUM 143 mmol/L (136-145); TOTAL PROTEIN 6.5 g/dL (6.4-8.2); eGFR NON BLACK RACES > 60 (>60)
[2018-04-07] MEDS ORDERED: ROCEPHIN VIAL 1 GRAM IVP SCH (09:00)
--- NOTE | 2018-04-07 13:13 | DR.H&P ---
H&P - History & Physical for Day of: H&P Date: 04/06/18 - Chief Complaint Chief Complaint: UNRESPONSIVE, OVERDOSE - History of Present Illness History of Present Illness: ER ADMISSION AFTER PRESENTING WITH UNRESPOSIVENESS, REPORTS OF OVERDOSE- ER REPORTS Patient was found unresponsive by her as related by EMS. EMS state the patient with shadow breathing and they intubated her and gave her narcan x2. EMS states that her thought she took overdose of his pain medicines. EMS states she had agonal breathing and she was cyanotic and they intubated her. Patient state she is not allergic to anything. Nurse suctioned one 75ug fentanyl patch out her mouth after she had episode of vomiting. Patient states she chewed three fentanyl patches today. She denies tobacco or alcohol usage. Patient states she was not trying to hurt herself when she chewed the fentanyl patch. PT EXTUBATED IN ER, ADMITTED TO ICU FOR RESP AND CARDIAC MONITORING. - Past Medical History Past Medical History: Anxiety, GERD - Family History Family Medical History: Diabetes Mellitus, Cancer, [place] - Social History Does patient currently use any type of tobacco product: Yes Have you used tobacco products in the last 12 months: Yes Type of Tobacco Use: Cigarettes How many years tobacco product used: 15 Packs per day or dips/chews per day: 1 - Medications Home Medications: No Known Drug Allergies Allergy (Verified 04/06/18 23:03) - Review of Systems Constitutional: Other Eyes: No Symptoms Reported ENT: No Symptoms Reported Respiratory: Other (AGONAL ON EMS ARRIVAL) Cardiovascular: No Symptoms Reported Gastrointestinal: No Symptoms Reported Genitourinary: No Symptoms Reported Musculoskeletal: No Symptoms Reported Skin: No Symptoms Reported Neurological: Other (UNRESPONSIVE) - Physical Exam Vital Signs: Temperature 99.3 F Pulse Rate [Brachial] 82 Pulse Rate 94 Respiratory Rate 24 Blood Pressure [Left Arm] 125/83 Blood Pressure [Right Arm] 123/65 Blood Pressure 113/72 O2 Sat by Pulse Oximetry 94 Oriented: Unable to test Ear: Normal Nose: Normal Throat: Normal Respiratory: Diminished Throughout Cardiovascular: Tachycardia : Normal Auscultation: Bowel Sounds: Normal Palpation: Normal Tenderness: Normal Skin: Normal Musculoskeletal: Motor Deficit, Sensory Deficit Speech Pattern: Aphasic - Assessment/Plan (1) Respiratory failure Qualifiers: Chronicity: acute Respiratory failure complication: unspecified whether with hypoxia or hypercapnia Qualified Code(s): J96.00 - Acute respiratory failure, unspecified whether with hypoxia or hypercapnia Status: Acute Plan: ADMIT ICU, STRICT I & OS. CONTINUOUS CARDIAC AND BP MONITORING. BP CONTROL, NPO. RESP CARE, SUPPLEMENTAL O2. ASPIRATION PRECAUTIONS, BEDSIDE SUCTION. REPEAT AM LABS (2) Drug overdose Qualifiers: Encounter type: initial encounter Injury intent: accidental or unintentional Qualified Code(s): T50.901A - Poisoning by unspecified drugs, medicaments and biological substances, accidental (unintentional), initial encounter Status: Acute (3) Fentanyl poisoning Qualifiers: Encounter type: initial encounter Injury intent: accidental or unintentional Qualified Code(s): T40.4X1A - Poisoning by other synthetic narcotics, accidental (unintentional), initial encounter Status: Acute - Allergies Allergies/Adverse Reactions: Allergies Allergy/AdvReac Type Severity Reaction Status Date / Time No Known Drug Allergies Allergy Verified 04/06/18 23:03
--- NOTE | 2018-04-07 13:18 | PCM.PROG ---
Progress Note - Progress Note for Day of Date of Exam: 04/07/18 - Subjective Subjective: 47 WF ER ADMISSION WITH REPORTED ACCIDENTAL OVERDOSE OF FENTANYL PATHCES. PT WAS PREVIOUSLY INTUBATED ON ARRIVAL TO ED, EXTUBATED PRIOR TO ICU ADMISSION. PT CURRENTLY RESTING QUIETLY WITH AWAKEN AND ANSWER APPROPRIATELY, THEN IMMEDIATELY CLOSES EYE, CONTINUE WITH LETHARY, BP AND CARDIAC STABLE THIS AM. GENTLE IV HYDRATION, SUPPLEMENTAL O2 - Past Medical Family Social History Past Med/Fam/Surg Hx: No changes since H&P Allergies: Allergies No Known Drug Allergies Allergy (Verified 04/06/18 23:03) - Review of Systems ROS: No change since H&P - Vital Signs and I&O's Vital Signs: Temperature 99.3 F Pulse Rate [Brachial] 82 Pulse Rate 94 Respiratory Rate 24 Blood Pressure [Left Arm] 125/83 Blood Pressure [Right Arm] 123/65 Blood Pressure 113/72 O2 Sat by Pulse Oximetry 94 Intake and Output: Intake & Output 04/05/18 04/06/18 04/07/18 04/08/18 11:59 11:59 11:59 11:59 Intake Total 289 / 289 Output Total 1300 / 1300 Balance -1011 / -1011 - Physical Exam Oriented: Normal Eyes: Normal Ear: Normal Nose: Normal Throat: Normal Respiratory: Diminished Cardiovascular: Normal : Normal Auscultation: Bowel Sounds: Normal Tenderness: Normal Skin: Normal Musculoskeletal: Normal Speech Pattern: Appropriate, Delayed - Laboratory and Diagnostics Result Diagrams: 04/07/18 07:52 04/07/18 07:52 Labs: Laboratory WBC 13.8 X10^3/uL (3.6-10.0) H 04/07/18 07:52 RBC 4.03 X10^6/uL (3.5-5.4) 04/07/18 07:52 Hgb 12.3 g/dL (12.0-16.0) 04/07/18 07:52 Hct 36.7 % (36.0-47.0) 04/07/18 07:52 MCV 91.0 fL (80.0-100.0) 04/07/18 07:52 MCH 30.5 pg (27.0-34.0) 04/07/18 07:52 MCHC 33.5 g/dL (33.0-35.0) 04/07/18 07:52 RDW 13.5 % (11.6-16.5) 04/07/18 07:52 Plt Count 308 X10^3/uL (150.0-450.0) 04/07/18 07:52 MPV 7.7 fL (7.4-11.0) 04/07/18 07:52 Neut % (Auto) 75.4 % (42.0-75.0) H 04/07/18 07:52 Lymph % (Auto) 16.9 % (21.0-51.0) L 04/07/18 07:52 [place] % (Auto) 6.8 % (0.0-13.0) 04/07/18 07:52 Eos % (Auto) 0.2 % (0.9-2.9) L 04/07/18 07:52 Baso % (Auto) 0.7 % (0.2-1.0) 04/07/18 07:52 Neut # (Auto) 10.4 x10^3/uL (2.2-4.8) H 04/07/18 07:52 Lymph # (Auto) 2.3 X10^3/uL (1.3-2.9) 04/07/18 07:52 [place] # (Auto) 0.9 x10^3/uL (0.3-0.8) H 04/07/18 07:52 Eos # (Auto) 0.0 x10^3/uL (0.0-0.2) 04/07/18 07:52 Baso # (Auto) 0.1 X10^3/uL (0.0-0.1) 04/07/18 07:52 Absolute Nucleated RBC 0.0 /100WBC 04/07/18 07:52 INR Target Range - 04/06/18 21:00 INR 0.93 (0.8-1.3) 04/06/18 21:00 APTT 25.5 SECONDS (22.9-36.5) 04/06/18 21:00 PTT Comment - 04/06/18 21:00 D-Dimer 848 ng/mL (0-400) H* 04/06/18 21:00 Sample Site Right radial 04/06/18 21:01 ABG pH 7.360 (7.35-7.45) 04/06/18 21:01 ABG pCO2 44.0 mmHg (35.0-45.0) 04/06/18 21:01 ABG pO2 347.0 mmHg (80.0-100.0) H 04/06/18 21:01 ABG HCO3 24.9 mmol/L (22-26) 04/06/18 21:01 ABG O2 Saturation 100.0 % (90-100) 04/06/18 21:01 ABG Base Excess -0.8 mmol/L (-2.0-2.0) 04/06/18 21:01 Ulices Test Pos 04/06/18 21:01 A-a Gradient 311.0 mmHg 04/06/18 21:01 FiO2 100 04/06/18 21:01 Blood Gas Comments Bhavana well jts 04/06/18 21:01 Sodium 143 mmol/L (136-145) 04/07/18 07:52 Corrected Sodium TNP 04/07/18 07:52 Potassium 3.6 mmol/L (3.5-5.1) 04/07/18 07:52 Chloride 104 mmol/L (98-107) 04/07/18 07:52 Carbon Dioxide 35.4 mmol/L (21-32) H 04/07/18 07:52 BUN 10 mg/dL (7-18) 04/07/18 07:52 Creatinine 0.82 mg/dL (0.55-1.02) 04/07/18 07:52 Est GFR (MDRD) Af Amer > 60 (>60) 04/07/18 07:52 Est GFR (MDRD) Non-Af > 60 (>60) 04/07/18 07:52 Glucose 92 mg/dL (65-99) 04/07/18 07:52 Calcium 7.9 mg/dL (8.5-10.1) L 04/07/18 07:52 Corrected Calcium 8.7 mg/dL (8.5-10.1) 04/07/18 07:52 Magnesium 1.9 mg/dL (1.7-2.9) 04/06/18 21:00 Total Bilirubin 0.20 mg/dL (0.2-1.0) 04/07/18 07:52 AST 36 Units/L (15-37) 04/07/18 07:52 ALT 37 Units/L (12-78) 04/07/18 07:52 Alkaline Phosphatase 66 Units/L (46-116) 04/07/18 07:52 Creatine Kinase 132 Units/L (26-192) 04/06/18 21:00 CK-MB (CK-2) 3.4 ng/mL (0-4.0) 04/06/18 21:00 CK/CKMB % Calc 2.6 % (<4) 04/06/18 21:00 Troponin I 0.33 ng/mL (0-1.5) 04/06/18 21:00 Total Protein 6.5 g/dL (6.4-8.2) 04/07/18 07:52 Albumin 3.0 g/dL (3.4-5.0) L 04/07/18 07:52 Globulin 3.5 g/dL (2.5-4.5) 04/07/18 07:52 Albumin/Globulin Ratio 0.9 Ratio (1.1-2.1) L 04/07/18 07:52 Specimen Type Catherized urine 04/06/18 21:07 Urine Color Yellow (YELLOW) 04/06/18 21:07 Urine Appearance Slightly hazy (CLEAR) 04/06/18 21:07 Urine pH 6.5 (5.0 - 8.0) 04/06/18 21:07 Ur Specific [place] 1.010 (1.000-1.030) 04/06/18 21:07 Urine Protein 3+ (NEGATIVE) 04/06/18 21:07 Urine Glucose (UA) 4+ (NEGATIVE) 04/06/18 21:07 Urine Ketones Negative (NEGATIVE) 04/06/18 21:07 Urine Occult Blood 3+ (NEGATIVE) 04/06/18 21:07 Urine Nitrite Negative (NEGATIVE) 04/06/18 21:07 Urine Bilirubin Negative (NEGATIVE) 04/06/18 21:07 Urine Urobilinogen Normal (NORMAL) 04/06/18 21:07 Ur Leukocyte Esterase Negative (NEGATIVE) 04/06/18 21:07 Urine RBC 20-30 /HPF (NONE SEEN) 04/06/18 21:07 Urine WBC 0-2 /HPF (NONE SEEN) 04/06/18 21:07 Ur Squamous Epith Cells Many /HPF (NEGATIVE) 04/06/18 21:07 Amorphous Sediment Trace /HPF (NEGATIVE) 04/06/18 21:07 Urine Bacteria Trace /HPF (NEGATIVE) 04/06/18 21:07 Urine Mucus Few /HPF (NEGATIVE) 04/06/18 21:07 Ur Culture Indicated? No/not indicated 04/06/18 21:07 Salicylates 2.8 mg/dL (2.8-20) 04/06/18 21:00 Urine Opiates Screen Negative (NEG=<300) 04/06/18 21:07 Urine Methadone Screen Negative (NEG=<300) 04/06/18 21:07 Ur Barbiturates Screen Negative (NEG=<200) 04/06/18 21:07 Ur Phencyclidine Scrn Negative (NEG=<25) 04/06/18 21:07 Ur Amphetamines Screen Negative (NEG=<1000) 04/06/18 21:07 U Benzodiazepines Scrn Positive (NEG=<200) A 04/06/18 21:07 Urine Cocaine Screen Negative (NEG=<300) 04/06/18 21:07 U Marijuana (THC) Screen Negative (NEG=<50) 04/06/18 21:07 Ethyl Alcohol mg/dL < 3 mg/dL (0-19.9) 04/06/18 21:00 - Plan (1) Respiratory failure Status: Acute Qualifiers: Chronicity: acute Respiratory failure complication: unspecified whether wit h hypoxia or hypercapnia Qualified Code(s): J96.00 - Acute respiratory fa ilure, unspecified whether with hypoxia or hypercapnia Plan: ICU. CONTINUOUS CARDIAC AND BP MONITORING. BP CONTROL, ADVANCE DIET TOLERATED. RESP CARE, SUPPLEMENTAL O2. ASPIRATION PRECAUTIONS, BEDSIDE SUCTION. REPEAT AM LABS (2) Drug overdose Status: Acute Qualifiers: Encounter type: initial encounter Injury intent: accidental or unintentional Qualified Code(s): T50.901A - Poisoning by unspecified drugs, medicaments and biological substances, accidental (unintentional), initial encounter (3) Fentanyl poisoning Status: Acute Qualifiers: Encounter type: initial encounter Injury intent: accidental or unintentional Qualified Code(s): T40.4X1A - Poisoning by other synthetic narcotics, accidental (unintentional), initial encounter
[2018-04-07 15:23] VITALS: BP 127/64
--- NOTE | 2018-04-24 09:59 | PCM.DCPLAN ---
Discharge Summary - Admission Date Date of Admission: 04/06/18 - Discharge Date Discharge Date: 04/07/18 - Admission Diagnoses (1) Drug overdose Status: Acute (2) Fentanyl poisoning Status: Acute (3) Respiratory failure Status: Acute - Discharge Diagnoses Discharge Diagnosis: SAME ADMISSION DIAGNOSIS - Discharge Medications Discharge Medications: Prescriptions: - Hospital Course Vital Signs: Temperature 98.7 F Pulse Rate [Brachial] 89 Pulse Rate 94 Respiratory Rate 24 Blood Pressure [Left Arm] 125/83 Blood Pressure [Right Arm] 127/64 Blood Pressure 113/72 O2 Sat by Pulse Oximetry 95 Latest Lab Results: Laboratory Last Values WBC 13.8 X10^3/uL (3.6-10.0) H 04/07/18 07:52 RBC 4.03 X10^6/uL (3.5-5.4) 04/07/18 07:52 Hgb 12.3 g/dL (12.0-16.0) 04/07/18 07:52 Hct 36.7 % (36.0-47.0) 04/07/18 07:52 MCV 91.0 fL (80.0-100.0) 04/07/18 07:52 MCH 30.5 pg (27.0-34.0) 04/07/18 07:52 MCHC 33.5 g/dL (33.0-35.0) 04/07/18 07:52 RDW 13.5 % (11.6-16.5) 04/07/18 07:52 Plt Count 308 X10^3/uL (150.0-450.0) 04/07/18 07:52 MPV 7.7 fL (7.4-11.0) 04/07/18 07:52 Neut % (Auto) 75.4 % (42.0-75.0) H 04/07/18 07:52 Lymph % (Auto) 16.9 % (21.0-51.0) L 04/07/18 07:52 [place] % (Auto) 6.8 % (0.0-13.0) 04/07/18 07:52 Eos % (Auto) 0.2 % (0.9-2.9) L 04/07/18 07:52 Baso % (Auto) 0.7 % (0.2-1.0) 04/07/18 07:52 Neut # (Auto) 10.4 x10^3/uL (2.2-4.8) H 04/07/18 07:52 Lymph # (Auto) 2.3 X10^3/uL (1.3-2.9) 04/07/18 07:52 [place] # (Auto) 0.9 x10^3/uL (0.3-0.8) H 04/07/18 07:52 Eos # (Auto) 0.0 x10^3/uL (0.0-0.2) 04/07/18 07:52 Baso # (Auto) 0.1 X10^3/uL (0.0-0.1) 04/07/18 07:52 Absolute Nucleated RBC 0.0 /100WBC 04/07/18 07:52 INR Target Range - 04/06/18 21:00 INR 0.93 (0.8-1.3) 04/06/18 21:00 APTT 25.5 SECONDS (22.9-36.5) 04/06/18 21:00 PTT Comment - 04/06/18 21:00 D-Dimer 848 ng/mL (0-400) H* 04/06/18 21:00 Sample Site Right radial 04/06/18 21:01 ABG pH 7.360 (7.35-7.45) 04/06/18 21:01 ABG pCO2 44.0 mmHg (35.0-45.0) 04/06/18 21:01 ABG pO2 347.0 mmHg (80.0-100.0) H 04/06/18 21:01 ABG HCO3 24.9 mmol/L (22-26) 04/06/18 21:01 ABG O2 Saturation 100.0 % (90-100) 04/06/18 21:01 ABG Base Excess -0.8 mmol/L (-2.0-2.0) 04/06/18 21:01 Ulices Test Pos 04/06/18 21:01 A-a Gradient 311.0 mmHg 04/06/18 21:01 FiO2 100 04/06/18 21:01 Blood Gas Comments Bhavana well jts 04/06/18 21:01 Sodium 143 mmol/L (136-145) 04/07/18 07:52 Corrected Sodium TNP 04/07/18 07:52 Potassium 3.6 mmol/L (3.5-5.1) 04/07/18 07:52 Chloride 104 mmol/L (98-107) 04/07/18 07:52 Carbon Dioxide 35.4 mmol/L (21-32) H 04/07/18 07:52 BUN 10 mg/dL (7-18) 04/07/18 07:52 Creatinine 0.82 mg/dL (0.55-1.02) 04/07/18 07:52 Est GFR (MDRD) Af Amer > 60 (>60) 04/07/18 07:52 Est GFR (MDRD) Non-Af > 60 (>60) 04/07/18 07:52 Glucose 92 mg/dL (65-99) 04/07/18 07:52 Calcium 7.9 mg/dL (8.5-10.1) L 04/07/18 07:52 Corrected Calcium 8.7 mg/dL (8.5-10.1) 04/07/18 07:52 Magnesium 1.9 mg/dL (1.7-2.9) 04/06/18 21:00 Total Bilirubin 0.20 mg/dL (0.2-1.0) 04/07/18 07:52 AST 36 Units/L (15-37) 04/07/18 07:52 ALT 37 Units/L (12-78) 04/07/18 07:52 Alkaline Phosphatase 66 Units/L (46-116) 04/07/18 07:52 Creatine Kinase 132 Units/L (26-192) 04/06/18 21:00 CK-MB (CK-2) 3.4 ng/mL (0-4.0) 04/06/18 21:00 CK/CKMB % Calc 2.6 % (<4) 04/06/18 21:00 Troponin I 0.33 ng/mL (0-1.5) 04/06/18 21:00 Total Protein 6.5 g/dL (6.4-8.2) 04/07/18 07:52 Albumin 3.0 g/dL (3.4-5.0) L 04/07/18 07:52 Globulin 3.5 g/dL (2.5-4.5) 04/07/18 07:52 Albumin/Globulin Ratio 0.9 Ratio (1.1-2.1) L 04/07/18 07:52 Specimen Type Catherized urine 04/06/18 21:07 Urine Color Yellow (YELLOW) 04/06/18 21:07 Urine Appearance Slightly hazy (CLEAR) 04/06/18 21:07 Urine pH 6.5 (5.0 - 8.0) 04/06/18 21:07 Ur Specific [place] 1.010 (1.000-1.030) 04/06/18 21:07 Urine Protein 3+ (NEGATIVE) 04/06/18 21:07 Urine Glucose (UA) 4+ (NEGATIVE) 04/06/18 21:07 Urine Ketones Negative (NEGATIVE) 04/06/18 21:07 Urine Occult Blood 3+ (NEGATIVE) 04/06/18 21:07 Urine Nitrite Negative (NEGATIVE) 04/06/18 21:07 Urine Bilirubin Negative (NEGATIVE) 04/06/18 21:07 Urine Urobilinogen Normal (NORMAL) 04/06/18 21:07 Ur Leukocyte Esterase Negative (NEGATIVE) 04/06/18 21:07 Urine RBC 20-30 /HPF (NONE SEEN) 04/06/18 21:07 Urine WBC 0-2 /HPF (NONE SEEN) 04/06/18 21:07 Ur Squamous Epith Cells Many /HPF (NEGATIVE) 04/06/18 21:07 Amorphous Sediment Trace /HPF (NEGATIVE) 04/06/18 21:07 Urine Bacteria Trace /HPF (NEGATIVE) 04/06/18 21:07 Urine Mucus Few /HPF (NEGATIVE) 04/06/18 21:07 Ur Culture Indicated? No/not indicated 04/06/18 21:07 Salicylates 2.8 mg/dL (2.8-20) 04/06/18 21:00 Urine Opiates Screen Negative (NEG=<300) 04/06/18 21:07 Urine Methadone Screen Negative (NEG=<300) 04/06/18 21:07 Ur Barbiturates Screen Negative (NEG=<200) 04/06/18 21:07 Ur Phencyclidine Scrn Negative (NEG=<25) 04/06/18 21:07 Ur Amphetamines Screen Negative (NEG=<1000) 04/06/18 21:07 U Benzodiazepines Scrn Positive (NEG=<200) A 04/06/18 21:07 Urine Cocaine Screen Negative (NEG=<300) 04/06/18 21:07 U Marijuana (THC) Screen Negative (NEG=<50) 04/06/18 21:07 Ethyl Alcohol mg/dL < 3 mg/dL (0-19.9) 04/06/18 21:00 Hospital Course: 47 WF ER ADMISSION WITH REPORTED ACCIDENTAL OVERDOSE OF FENTANYL PATHCES. PT WAS PREVIOUSLY INTUBATED ON ARRIVAL TO ED, EXTUBATED PRIOR TO ICU ADMISSION. PT. BP AND CARDIAC STABLE. GENTLE IV HYDRATION, SUPPLEMENTAL O2 PROVIDED. PATIENT BECAME ALERT. PATIENT DISCHARGED HOME STABLE TO BE FOLLOWED ON OP BASIS. - Discharge Plan Disposition: HOME, SELF-CARE Condition: Stable - Follow ups/Referrals Follow ups/Referrals: LATOYA LAND [Nurse Practitioner] - 3 DAYS NFD,None [Primary Care Provider] - 3 days - Instructions Instructions: Acute Respiratory Distress Syndrome, Adult, Opioid Overdose
== END 2018-04-07 13:50 | disposition home or self-care (01) | DRG 189 ==
LOC: ER 20:37 → ICU 22:43
PROVIDERS: ADMIT Internal Medicine; ATTEND Internal Medicine
DX: E11.65 Type 2 diabetes mellitus with hyperglycemia; T40.4X1A Poisoning by other synthetic narcotics, accidental (unintentional), initial encounter; N18.9 Chronic kidney disease, unspecified; R11.11 Vomiting without nausea; R40.4 Transient alteration of awareness; K21.9 Gastro-esophageal reflux disease without esophagitis; F41.8 Other specified anxiety disorders; Y92.89 Other specified places as the place of occurrence of the external cause; J96.00 Acute respiratory failure, unspecified whether with hypoxia or hypercapnia
CPT/HCPCS: 36415; 36600; 43753; 51702; 71010; 71045; 80053; 80307; 80320; 81001; 82550; 82553; 82803; 83735; 84484; 85025; 85378; 85610; 85730; 93005; 93010; 93041; 96365; 96367; 96374; 99284; 99285; A4222; A4618; C9113; G0434; G6038; G6040; J0696; J7030; J7050